=== PATIENT | male | born 1985 | race Hispanic/Latino ===

== ENCOUNTER 2023-12-03 19:56 | Emergency (ER) | payer BC ==
[~2023-12-03] VITALS: Ht 193 cm; Wt 133.8 kg
[2023-12-03] MEDS: FAMOTIDINE 20MG VIAL IV ONE (20:16)
[2023-12-03] MEDS: Solu-medROL 125MG VIAL IVP ONE (20:16)
[2023-12-03] MEDS: cePHALexin 500 MG CAPSULE PO ONE (20:17)
[2023-12-03 20:25] VITALS: BP 143/93; PULSE 107; RESP 18; TEMP 98.3; O2SAT 97
[2023-12-03] MEDS ORDERED: METH4TAB3 PO (20:44)
[2023-12-03] MEDS ORDERED: DIPH50 PO (20:44)
== END 2023-12-03 21:12 | disposition home or self-care (01) ==
LOC: EDH 19:56
DX: T63.481A Toxic effect of venom of other arthropod, accidental (unintentional), initial encounter (principal); R22.0 Localized swelling, mass and lump, head; I10 Essential (primary) hypertension; Y92.89 Other specified places as the place of occurrence of the external cause
CPT/HCPCS: 99284; 96374; 96375; J3490; J2919